=== PATIENT | male | born 1965 | race Caucasian/White ===

== ENCOUNTER 2021-11-07 11:44 | Emergency (ER) | payer MEDICAID, OTHER ==
[~2021-11-07] VITALS: Ht 170.2 cm; Wt 108.9 kg
[2021-11-07 12:29] LABS: Basophils # (auto) 0 10 ^3/uL (0-0.2); Basophils % (auto) 0.5 % (0.0-2.0); Eosinophils # (auto) 0.2 10 ^3/uL (0-0.8); Eosinophils % (auto) 3.3 % (0.0-7.0); Hematocrit 47.5 % (41.0-53.0); Hemoglobin 16.2 g/dL (13.5-17.5); Lymphocytes # (auto) 1.7 10 ^3/uL (0.4-5.4); Lymphocytes % (auto) 24.6 % (10.0-50.0); Mean Corpuscular Hemoglobin 29.5 pg (28.0-32.0); Mean Corpuscular Volume 86.7 fL (80.0-100.0); Monocytes # (auto) 0.5 10 ^3/uL (0-1.3); Monocytes % (auto) 7.4 % (0.0-12.0); Neutrophils # (auto) 4.5 10 ^3/uL (1.6-8.6); Neutrophils % (auto) 64.2 % (37.0-80.0); Nucleated Red Blood Cells % 0.3 %; Red Blood Cells 5.48 10^6/uL (4.5-5.90); Red Cell Distribution Width 13.7 % (11.8-14.3)
[2021-11-07 12:43] LABS: Potassium 4.1 mmol/L (3.5-5.1)
[2021-11-07 12:47] LABS: BUN/Creatinine Ratio 13.5; Bilirubin, Total 0.6 mg/dL (0.2-1.0)
[2021-11-07 12:57] LABS: Urine Bacteria NONE SEEN /hpf (None Seen); Urine Blood Negative /uL (Negative); Urine Mucus FEW (None Seen); Urine Specific Gravity 1.029 (1.001-1.035); Urine WBC 1 /hpf (0 - 3)
[2021-11-07] MEDS ORDERED: SODIUM CHLORIDE 0.9% 1,000 ML IV ONE (15:45)
[2021-11-07] MEDS: KETOROLAC TROMETH 30 MG/ML 1ML VIAL IV ONE ×2 (15:57→16:10)
[2021-11-07 18:34] VITALS: BP 148/89
[2021-11-08] MEDS ORDERED: PERCOT PO (00:22)
[2021-11-08] MEDS ORDERED: NITR-87 PO (00:22)
== END 2021-11-08 00:20 | disposition left against medical advice (07) ==
LOC: ER 11:44
DX: N20.9 Urinary calculus, unspecified (principal); K80.20 Calculus of gallbladder without cholecystitis without obstruction
CPT/HCPCS: 36415; 74176; 80053; 81001; 84484; 85025; 93005; 96361; 96374; 99285; J1885; J7030